=== PATIENT | male | born 1970 | race Caucasian/White ===

== ENCOUNTER 2017-04-23 09:44 | Emergency (ER) | payer MEDICAID, OTHER ==
[~2017-04-23] VITALS: Ht 177.8 cm; Wt 81.6 kg
[~2017-04-23 09:44] MED LIST: NORPTMEDS CO
[2017-04-23 10:35] VITALS: BP 120/72
== END 2017-04-23 11:05 | disposition home or self-care (01) ==
LOC: ER 09:44
DX: M79.601 Pain in right arm (principal); F17.210 Nicotine dependence, cigarettes, uncomplicated; Z48.01 Encounter for change or removal of surgical wound dressing; Z88.0 Allergy status to penicillin

== ENCOUNTER 2021-11-15 10:53 | Emergency (ER) | payer MEDICAID ==
[~2021-11-15] VITALS: Ht 177.8 cm; Wt 88.6 kg
[2021-11-15 11:35] VITALS: BP 127/78
== END 2021-11-15 13:44 | disposition home or self-care (01) ==
LOC: ER 10:55
DX: S06.0X0A Concussion without loss of consciousness, initial encounter (principal); M79.10 Myalgia, unspecified site; M25.511 Pain in right shoulder; M79.672 Pain in left foot; M79.671 Pain in right foot; F17.210 Nicotine dependence, cigarettes, uncomplicated; Z88.0 Allergy status to penicillin; W17.89XA Other fall from one level to another, initial encounter; Y93.89 Activity, other specified; Y92.89 Other specified places as the place of occurrence of the external cause; Y99.8 Other external cause status
CPT/HCPCS: 70450; 72125; 73030; 73630

== ENCOUNTER 2022-03-05 02:21 | Emergency (ER) | payer MEDICAID | END 2022-03-05 03:46 | disposition left against medical advice (07) | LOC: ER 02:21 | DX: R22.41 Localized swelling, mass and lump, right lower limb (principal); Z53.21 Procedure and treatment not carried out due to patient leaving prior to being seen by health care provider ==

== ENCOUNTER 2023-01-23 08:38 | Emergency (ER) | payer MEDICAID ==
[~2023-01-23] VITALS: Ht 177.8 cm; Wt 83.7 kg
[2023-01-23 08:51] VITALS: BP 137/95; PULSE 75; RESP 16; TEMP 98.2; O2SAT 99
[2023-01-23] MEDS ORDERED: IBUP-1456 PO (09:26)
[2023-01-23] MEDS ORDERED: KETOROLAC TROMETH 60MG/2ML VIAL IM ONE (09:30)
== END 2023-01-23 09:38 | disposition home or self-care (01) ==
LOC: ER 08:38
DX: S76.011A Strain of muscle, fascia and tendon of right hip, initial encounter (principal); F17.210 Nicotine dependence, cigarettes, uncomplicated; Z88.0 Allergy status to penicillin; W18.39XA Other fall on same level, initial encounter; Y93.89 Activity, other specified; Y92.89 Other specified places as the place of occurrence of the external cause; Y99.8 Other external cause status
CPT/HCPCS: 73502; 96372; 99283; J1885

== ENCOUNTER 2023-04-22 11:51 | Inpatient (IN) | payer MEDICAID ==
[~2023-04-22] VITALS: Ht 177.8 cm; Wt 84.6 kg
[~2023-04-22 11:51] MED LIST changes: +IBUP-1456 PO
[2023-04-22 12:06] LABS: Basophils # (auto) 0.1 10 ^3/uL (0-0.2); Basophils % (auto) 0.6 % (0.0-2.0); Eosinophils # (auto) 0 10 ^3/uL (0-0.8); Eosinophils % (auto) 0.1 % (0.0-7.0); Hematocrit 46.1 % (41.0-53.0); Hemoglobin 15.1 g/dL (13.5-17.5); Lymphocytes # (auto) 1.6 10 ^3/uL (0.4-5.4); Lymphocytes % (auto) 8.3 % (10.0-50.0); Mean Corpuscular Hemoglobin 30.4 pg (28.0-32.0); Mean Corpuscular Hgb Conc. 32.9 g/dL (32.0-36.0); Mean Corpuscular Volume 92.4 fL (80.0-100.0); Monocytes # (auto) 1.2 10 ^3/uL (0-1.3); Neutrophils # (auto) 16.4 10 ^3/uL (1.6-8.6); Nucleated Red Blood Cells % 0.2 %; Red Blood Cells 4.98 10^6/uL (4.5-5.90); Red Cell Distribution Width 15.3 % (11.8-14.3); White Blood Cell 19.3 10^3/uL (4.4-10.8)
[2023-04-22 12:27] LABS: Alanine Aminotransferase 34 U/L (7-40); Albumin 4.4 g/dL (3.2-4.8); Alkaline Phosphatase 91 U/L (46-116); Anion Gap 4 (5-15); Aspartate Aminotransferase 23 U/L (13-40); BUN/Creatinine Ratio 10.9 (10.0-20.0); Bilirubin, Total 0.4 mg/dL (0.2-1.0); Blood Urea Nitrogen 10 mg/dL (9-23); Calcium 9.2 mg/dL (8.5-10.1); Carbon Dioxide 27 mmol/L (20-30); Chloride 102 mmol/L (98-107); Glucose 105 mg/dL (74-106); Potassium 4.1 mmol/L (3.5-5.1); Sodium 133 mmol/L (136-145); Total Protein 6.8 g/dL (5.7-8.2)
[2023-04-22 12:33] LABS: Blood Alcohol < 3.0 mg/dL (<10)
[2023-04-22 12:47] LABS: Lipase 33 U/L (12-53)
[2023-04-22] MEDS: LIDOCAINE VISCOUS 2% 15ML UD PO ONE (12:52)
[2023-04-22] MEDS: DONNATAL 5ml ORAL Elix (BELLADONNA ALK-PHENOBARB) PO ONE (12:52)
[2023-04-22] MEDS: MAALOX PLUS or MAALOX 30 ML PO ONE (12:52)
[2023-04-22 12:56] VITALS: PULSE 84
[2023-04-22] MEDS: MORPHINE SULFATE 4 MG/ML SYR/VIAL IV ONE (13:06)
[2023-04-22] MEDS: ONDANSETRON ODT 4 MG TAB PO ONE (13:07)
[2023-04-22] MEDS: SODIUM CHLORIDE 0.9% 1,000 ML IV ONE (13:09)
[2023-04-22] MEDS: levoFLOXacin 500MG 100 ML IV ONE (13:44)
[2023-04-22] MEDS ORDERED: ONDANSETRON HCL 4 MG/2 ML VIAL IV PRN (14:15)
[2023-04-22] MEDS ORDERED: DOCUSATE SOD 100 MG CAP PO PRN (14:15)
[2023-04-22] MEDS ORDERED: MORPHINE SULFATE INJ 2 MG/ml SYRG IV PRN (14:15)
[2023-04-22] MEDS: SODIUM CHLORIDE 0.9% 1,000 ML IV SCH (15:02)
[2023-04-22 18:41] LABS: Urine Bacteria NONE SEEN /hpf (None Seen); Urine Blood Negative /uL (Negative); Urine Clarity HAZY (Clear); Urine Color Yellow (Yellow); Urine Mucus MODERATE (None Seen); Urine Protein, UAD TRACE (Negative); Urine Specific Gravity 1.027 (1.001-1.035); Urine Urobilinogen Normal (Negative); Urine WBC 2 /hpf (0 - 3); Urine pH 5.5 (5.0-8.0)
[2023-04-22] MEDS ORDERED: ACETAMINOPHEN 325 MG TAB PO PRN (23:00)
[2023-04-23] VITALS (10 sets, daily range): BP systolic 100–124; BP diastolic 55–81; PULSE 82–99; RESP 12–20; TEMP 98–99.9; O2SAT 95–99
[2023-04-23 07:15] LABS: Basophils # (auto) 0 10 ^3/uL (0-0.2); Basophils % (auto) 0.2 % (0.0-2.0); Eosinophils # (auto) 0 10 ^3/uL (0-0.8); Eosinophils % (auto) 0.1 % (0.0-7.0); Hematocrit 39.6 % (41.0-53.0); Hemoglobin 13.2 g/dL (13.5-17.5); Lymphocytes # (auto) 2.1 10 ^3/uL (0.4-5.4); Lymphocytes % (auto) 16.7 % (10.0-50.0); Mean Corpuscular Hemoglobin 30.9 pg (28.0-32.0); Mean Corpuscular Hgb Conc. 33.4 g/dL (32.0-36.0); Mean Corpuscular Volume 92.6 fL (80.0-100.0); Monocytes % (auto) 7.8 % (0.0-12.0); Neutrophils # (auto) 9.5 10 ^3/uL (1.6-8.6); Neutrophils % (auto) 75.2 % (37.0-80.0); Red Blood Cells 4.27 10^6/uL (4.5-5.90); Red Cell Distribution Width 15.5 % (11.8-14.3); White Blood Cell 12.6 10^3/uL (4.4-10.8)
[2023-04-23 07:25] LABS: Alanine Aminotransferase 23 U/L (7-40); Albumin 3.7 g/dL (3.2-4.8); Alkaline Phosphatase 72 U/L (46-116); Anion Gap 3 (5-15); Aspartate Aminotransferase 20 U/L (13-40); BUN/Creatinine Ratio 6.5 (10.0-20.0); Blood Urea Nitrogen 6 mg/dL (9-23); Calcium 8.5 mg/dL (8.5-10.1); Carbon Dioxide 27 mmol/L (20-30); Chloride 106 mmol/L (98-107); Glucose 108 mg/dL (74-106); Potassium 3.9 mmol/L (3.5-5.1); Sodium 136 mmol/L (136-145)
[2023-04-23 07:26] LABS: Bilirubin, Total 0.5 mg/dL (0.2-1.0); Total Protein 6.4 g/dL (5.7-8.2)
[2023-04-23 10:16] LABS: CRP High Sensitivity 7.53 mg/dL (<1.0)
[2023-04-23] MEDS: PANTOPRAZOLE 40 MG/10 ML VIAL INJ IV SCH (10:34)
[2023-04-23] MEDS: levoFLOXacin 500MG 100 ML IV SCH (10:35)
[2023-04-23 10:40] LABS: Magnesium 1.9 mg/dL (1.6-2.6)
[2023-04-23] MEDS ORDERED: chlordiazePOXIDE HCL 25 MG CAP PO PRN (11:00)
[2023-04-23 11:10] LABS: % Iron Saturation 5.3 % (20-55)
[2023-04-23 11:40] LABS: INR 1.21 (0.9-1.15); Prothrombin Time 12.5 sec (9.3-11.8)
[2023-04-23 12:00] LABS: Amylase 46 U/L (30-118)
[2023-04-23 12:26] LABS: Lipase 32 U/L (12-53)
[2023-04-23] MEDS ORDERED: GLYCOPYRROLATE 0.2 MG/ML 1ML VIAL ONE (12:29)
[2023-04-23] MEDS ORDERED: MIDAZOLAM HCL 2MG/2ML 2ml VIAL (1mg/ml) ONE (12:29)
[2023-04-23] MEDS ORDERED: ONDANSETRON HCL 4 MG/2 ML VIAL ONE (12:29)
[2023-04-23] MEDS ORDERED: KETAMINE 50mg/ML 1ml syringe ONE (12:29)
[2023-04-23] MEDS ORDERED: KETOROLAC TROMETH 30 MG/ML 1ML VIAL ONE (12:29)
[2023-04-23] MEDS ORDERED: HYDROmorphone HCL 2 MG/ML VL/or syr ONE (12:29)
[2023-04-23] MEDS ORDERED: ePHEDrine SULFATE 50 MG/ML AMP ONE (12:29)
[2023-04-23] MEDS ORDERED: diphenhdrAMINE HCL 50 MG/1 ML VL ONE (12:29)
[2023-04-23] MEDS ORDERED: fentaNYL CITRATE 100 MCG/2 ML VL ONE (12:29)
[2023-04-23] MEDS ORDERED: LIDOCAINE 2% (LOCAL ANESTH.) PF 5ml SDV ONE (12:29)
[2023-04-23] MEDS ORDERED: PROPOFOL 10 MG/ML 20 ML IV ONE (12:29)
[2023-04-23] MEDS ORDERED: LIDOCAINE W/ EPINEPHRINE 1% 20ML VIAL ONE (12:29)
[2023-04-23] MEDS ORDERED: metroNIDAZOLE 500MG/100ML 100 ML IV ONE (13:07)
[2023-04-23] MEDS ORDERED: POVIDONE IODINE 10 % TOPICAL OINT 30GM TOP ONE (13:40)
[2023-04-23] MEDS ORDERED: SUGAMMADEX 200mg/2ml Vial (100MG/ML) IV ONE (13:41)
[2023-04-23] MEDS ORDERED: ONDANSETRON HCL 4 MG/2 ML VIAL IV PRN (14:00)
[2023-04-23] MEDS ORDERED: HYDROmorphone HCL 2 MG/ML VL/or syr IV PRN (14:00)
[2023-04-23] MEDS: D5W/SOD CHL 0.45%/KCL 20MEQ 1,000 ML IV SCH (15:36)
[2023-04-23] MEDS: metroNIDAZOLE 500MG/100ML 100 ML IV SCH (15:36)
[2023-04-24 05:00] VITALS: BP 105/67; PULSE 79; RESP 18; TEMP 98.2; O2SAT 98
[2023-04-24 06:07] LABS: Basophils # (auto) 0 10 ^3/uL (0-0.2); Basophils % (auto) 0.2 % (0.0-2.0); Eosinophils # (auto) 0 10 ^3/uL (0-0.8); Hematocrit 37.5 % (41.0-53.0); Hemoglobin 12.4 g/dL (13.5-17.5); Lymphocytes # (auto) 1.4 10 ^3/uL (0.4-5.4); Lymphocytes % (auto) 10.5 % (10.0-50.0); Mean Corpuscular Hemoglobin 30.9 pg (28.0-32.0); Mean Corpuscular Hgb Conc. 33.2 g/dL (32.0-36.0); Monocytes # (auto) 0.7 10 ^3/uL (0-1.3); Monocytes % (auto) 5.1 % (0.0-12.0); Neutrophils # (auto) 11.2 10 ^3/uL (1.6-8.6); Neutrophils % (auto) 84.2 % (37.0-80.0); Red Blood Cells 4.03 10^6/uL (4.5-5.90); Red Cell Distribution Width 15.6 % (11.8-14.3); White Blood Cell 13.3 10^3/uL (4.4-10.8)
[2023-04-24 06:30] LABS: Alanine Aminotransferase 27 U/L (7-40); Albumin 3.6 g/dL (3.2-4.8); Alkaline Phosphatase 73 U/L (46-116); Anion Gap 5 (5-15); Aspartate Aminotransferase 25 U/L (13-40); BUN/Creatinine Ratio 10.9 (10.0-20.0); Blood Urea Nitrogen 10 mg/dL (9-23); Calcium 8.2 mg/dL (8.7-10.4); Carbon Dioxide 26 mmol/L (20-30); Chloride 106 mmol/L (98-107); Glucose 130 mg/dL (74-106); Potassium 4.3 mmol/L (3.5-5.1); Sodium 137 mmol/L (136-145)
[2023-04-24 06:31] LABS: Bilirubin, Total 0.3 mg/dL (0.2-1.0); Total Protein 5.9 g/dL (5.7-8.2)
[2023-04-24] MEDS ORDERED: HYDROcodone-ACET 5/325MG TAB PO PRN (07:30)
[2023-04-24] MEDS ORDERED: ACETAMINOPHEN 325 MG TAB PO PRN (07:30)
[2023-04-24 08:00] VITALS: PULSE 80; PULSE 82; RESP 16; O2SAT 96
[2023-04-24 08:33] VITALS: BP 99/61; PULSE 74; RESP 17; TEMP 97.6; O2SAT 93
[2023-04-24] MEDS ORDERED: CEPH250C PO (11:24)
[2023-04-24] MEDS ORDERED: FER325T PO (11:24)
[2023-04-24] MEDS ORDERED: IRON SUCROSE COMPLEX 100 ML IV SCH (12:00)
[2023-04-24 12:02] VITALS: TEMP 36.4
[2023-04-24] MEDS ORDERED: CIPR-173 PO (12:14)
[2023-04-24 12:44] VITALS: BP 107/68; PULSE 81; RESP 17; TEMP 97.8; O2SAT 98
== END 2023-04-24 16:07 | disposition home or self-care (01) | DRG 710 ==
LOC: ER 11:51 → OVERFLOW 14:20 → CENTRAL 14:20
PROVIDERS: ADMIT Internal Medicine Geriatric Medicine; ATTEND Internal Medicine Geriatric Medicine
PROC: 0DTJ4ZZ Resection of Appendix, Percutaneous Endoscopic Approach (ICD-10-PCS; principal; 2023-04-23 13:13)
DX: A41.9 Sepsis, unspecified organism (principal); E87.1 Hypo-osmolality and hyponatremia; K35.80 Unspecified acute appendicitis; K57.32 Diverticulitis of large intestine without perforation or abscess without bleeding; E86.0 Dehydration; E86.1 Hypovolemia; F10.90 Alcohol use, unspecified, uncomplicated; F17.210 Nicotine dependence, cigarettes, uncomplicated; D64.9 Anemia, unspecified; Z88.0 Allergy status to penicillin
CPT/HCPCS: 36415; 71045; 74176; 76705; 80053; 80061; 80320; 81001; 82150; 82728; 83036; 83540; 83550; 83605; 83690; 83735; 84443; 84484; 85025; 85610; 86141; 87040; 93005; 96361; 96365; 96375; C9113; G0378; J1756; J1885; J1956; J2001; J2250; J2405; J2704; J3490; Q0162

== ENCOUNTER 2023-12-07 10:26 | Emergency (ER) | payer MEDICAID ==
[~2023-12-07] VITALS: Ht 177.8 cm; Wt 83.7 kg
[~2023-12-07 10:26] MED LIST changes: +CIPR-173 PO; +FER325T PO; -IBUP-1456 PO; -NORPTMEDS CO
[2023-12-07] MEDS: IOHEXOL 300 MG/ML 100ML BOTTLE IJ ONE (10:58)
[2023-12-07 11:06] LABS: Basophils # (auto) 0.1 10 ^3/uL (0-0.2); Eosinophils # (auto) 0.1 10 ^3/uL (0-0.8); Eosinophils % (auto) 0.8 % (0.0-7.0); Hematocrit 46.5 % (41.0-53.0); Hemoglobin 15.9 g/dL (13.5-17.5); Lymphocytes # (auto) 2.6 10 ^3/uL (0.4-5.4); Lymphocytes % (auto) 21.5 % (10.0-50.0); Mean Corpuscular Hemoglobin 31.2 pg (28.0-32.0); Mean Corpuscular Hgb Conc. 34.1 g/dL (32.0-36.0); Mean Corpuscular Volume 91.5 fL (80.0-100.0); Monocytes # (auto) 0.5 10 ^3/uL (0-1.3); Monocytes % (auto) 3.9 % (0.0-12.0); Neutrophils # (auto) 8.8 10 ^3/uL (1.6-8.6); Neutrophils % (auto) 72.8 % (37.0-80.0); Platelet Count (auto) 244 10^3/uL (140-450); Red Blood Cells 5.08 10^6/uL (4.5-5.90); Red Cell Distribution Width 13.7 % (11.8-14.3); White Blood Cell 12.1 10^3/uL (4.4-10.8)
[2023-12-07 11:24] LABS: Chloride 107 mmol/L (98-107); Sodium 141 mmol/L (136-145)
[2023-12-07 11:25] LABS: Anion Gap 5 (5-15); Carbon Dioxide 29 mmol/L (20-30)
[2023-12-07 11:26] LABS: Calcium 9.8 mg/dL (8.7-10.4)
[2023-12-07 11:30] LABS: BUN/Creatinine Ratio 11.7 (10.0-20.0); Blood Urea Nitrogen 11 mg/dL (9-23); Glucose 92 mg/dL (74-106)
[2023-12-07 12:34] VITALS: BP 122/86; PULSE 88; RESP 17; TEMP 98.7; O2SAT 98
== END 2023-12-07 12:37 | disposition home or self-care (01) ==
LOC: ER 10:26
DX: K40.90 Unilateral inguinal hernia, without obstruction or gangrene, not specified as recurrent (principal); F17.210 Nicotine dependence, cigarettes, uncomplicated; Z90.49 Acquired absence of other specified parts of digestive tract; Z79.899 Other long term (current) drug therapy
CPT/HCPCS: 36415; 74177; 80048; 85025; 99285; Q9967